=== PATIENT | female | born 2000 | race Hispanic/Latino ===

== ENCOUNTER 2018-02-09 14:42 | Emergency (ER) | payer MEDICAID, OTHER ==
[~2018-02-09 14:42] MED LIST: IBUP-2070 PO; SENN-175 PO; [UNRECOGNIZED DRUG - OTHER] PO
[2018-02-09 15:23] LABS: APPEARANCE,URINE Cloudy (CLEAR); BILIRUBIN,URINE Negative (NEGATIVE); COLOR,URINE Yellow (YELLOW); GLUCOSE, URINE (UA) Negative (NEGATIVE); KETONES,URINE Negative (NEGATIVE); LEUKOCYTE ESTERASE ,URINE Small (NEGATIVE); NITRATE,URINE Negative (NEGATIVE); OCCULT BLOOD,URINE Negative (NEGATIVE); PROTEIN,URINE POS 2+ (NEGATIVE)
[2018-02-09 15:26] LABS: HCG,QUAL RESULT NEGATIVE (NEGATIVE)
[2018-02-09 15:32] LABS: MUCUS,URINE Few LPF (None Seen)
[2018-02-09 15:33] LABS: BACTERIA,URINE Few /HPF (None Seen); RBC,URINE None Seen /HPF (0-1)
[2018-02-09] MEDS ORDERED: KETOROLAC TROMETHAMINE 30MG/ML ONE (16:11)
== END 2018-02-09 16:24 | disposition home or self-care (01) ==
LOC: EDH 14:42
DX: S30.0XXA Contusion of lower back and pelvis, initial encounter (principal); Z90.49 Acquired absence of other specified parts of digestive tract; W18.39XA Other fall on same level, initial encounter; Y93.01 Activity, walking, marching and hiking; Y92.89 Other specified places as the place of occurrence of the external cause; Y99.8 Other external cause status
CPT/HCPCS: 72220; 81001; 81025; 96372; 99285; J1885

== ENCOUNTER 2018-10-16 14:21 | Emergency (ER) | payer OTHER ==
[~2018-10-16 14:21] MED LIST changes: -SENN-175 PO; +SENN8.6T32 PO
[2018-10-16 16:05] LABS: CREATININE 0.6 mg/dL (0.5-1.5); POTASSIUM 3.1 mmol/L (3.5-5.1)
[2018-10-16 16:07] LABS: BASOPHILS % (AUTO) 0.1 % (0.0-5.0); EOSINOPHILS % (AUTO) 0.4 % (0.0-8.0); HEMATOCRIT 39.3 % (36-48); LYMPHOCYTES % (AUTO) 23.9 % (21.0-51.0); MEAN CORPUSCULAR HEMOGLOBIN 28.4 pg (27.0-33.0); MEAN CORPUSCULAR HGB CONC 32.8 g/dL (32.0-36.0); MEAN CORPUSCULAR VOLUME 86.4 fL (80-100); MONOCYTES % (AUTO) 4.6 % (3.0-13.0); PLATELET COUNT (AUTO) 285 K/uL (130-400); RED BLOOD CELL COUNT(AUTO) 4.55 MIL/uL (4.00-5.50); RED CELL DISTRIBUTION WIDTH 13.6 % (11.0-15.5); WHITE BLOOD COUNT (AUTO) 11.2 K/uL (4.8-10.8)
[2018-10-16] MEDS ORDERED: IBUPROFEN 600 MG TABLET ONE (16:29)
[2018-10-16] MEDS ORDERED: POTASSIUM CHLORIDE 20 MEQ ERTAB PO ONE (16:30)
== END 2018-10-16 18:12 | disposition home or self-care (01) ==
LOC: EDH 14:21
DX: M94.0 Chondrocostal junction syndrome [Tietze] (principal)
CPT/HCPCS: 36415; 71045; 80048; 81025; 82550; 84484; 85025; 93005

== ENCOUNTER 2021-05-30 20:22 | Emergency (ER) | payer OTHER ==
[~2021-05-30] VITALS: Ht 154.9 cm; Wt 99.8 kg
[2021-05-30 20:25] VITALS: BP 141/80
[2021-05-30 20:47] LABS: BASOPHILS % (AUTO) 0.2 % (0.0-5.0); EOSINOPHILS % (AUTO) 0.6 % (0.0-8.0); HEMATOCRIT 35.5 % (36-48); LYMPHOCYTES % (AUTO) 14.1 % (21.0-51.0); MEAN CORPUSCULAR HGB CONC 32.7 g/dL (32.0-36.0); MEAN CORPUSCULAR VOLUME 85.7 fL (79-99); MONOCYTES % (AUTO) 4.4 % (3.0-13.0); NEUTROPHILS % (AUTO) 80.2 % (40.0-77.0); PLATELET COUNT (AUTO) 296 K/uL (130-400); RED BLOOD CELL COUNT(AUTO) 4.14 MIL/uL (4.00-5.50); RED CELL DISTRIBUTION WIDTH 13.2 % (11.0-15.5); WHITE BLOOD COUNT (AUTO) 12.7 K/uL (4.8-10.8)
[2021-05-30 20:58] LABS: CREATININE 0.8 mg/dL (0.5-1.5); POTASSIUM 3.6 mmol/L (3.5-5.1)
[2021-05-30 21:02] LABS: ALBUMIN 3.8 g/dL (3.5-5.0); BILIRUBIN,TOTAL 0.5 mg/dL (0.2-1.0); TOTAL PROTEIN, SERUM 7.4 g/dL (6.0-8.3)
== END 2021-05-30 20:54 | disposition left against medical advice (07) ==
LOC: EDH 20:22
DX: R10.9 Unspecified abdominal pain (principal); Z53.21 Procedure and treatment not carried out due to patient leaving prior to being seen by health care provider
CPT/HCPCS: 36415; 80053; 81025; 85025